=== PATIENT | female | born 1965 | race Caucasian/White ===

== ENCOUNTER 2017-03-14 05:58 | Emergency (ER) | payer SELFPAY | END 2017-03-14 06:09 | disposition left against medical advice (07) | LOC: ER 06:03 | DX: R00.0 Tachycardia, unspecified (principal); Z53.21 Procedure and treatment not carried out due to patient leaving prior to being seen by health care provider ==

== ENCOUNTER 2017-03-25 13:59 | Inpatient (IN) | payer MEDICAID ==
[~2017-03-25] VITALS: Ht 157.5 cm; Wt 70.3 kg
[2017-03-25] MEDS ORDERED: DILTIAZEM HCL 5MG/ML 5ML VIAL IV ONE (14:15)
[2017-03-25 14:40] LABS: EOSINOPHILS % 2.3 % (0.0-5.0); HEMATOCRIT. 41.6 % (36.0-48.0); HEMOGLOBIN. 13.6 g/dL (12.0-16.0); MEAN CORPUSCULAR HEMOGLOBIN 27.3 pg (28.0-32.0); MEAN CORPUSCULAR VOLUME 83.5 fL (81.0-99.0); MEAN PLATELET VOLUME 8.1 fl (7.4-10.4); MONOCYTES % 7.9 % (2.0-8.0); NEUTROPHILS % 66.8 % (40.0-76.0); PLATELET 399 x1000/uL (130-400); RED BLOOD CELL COUNT 4.98 mill/uL (4.2-5.4); RED CELL DISTRIBUTION WIDTH 15.7 % (11.6-14.6)
[2017-03-25] MEDS ORDERED: DILTIAZEM HCL 120MG CAPSULE CD 24HR PO ONE (14:45)
[2017-03-25 14:49] LABS: INR 1.1
[2017-03-25 14:57] LABS: CARBON DIOXIDE 24 mEq/L (21-32); CHLORIDE 105 mEq/L (98-107); TROPONIN I 0.05 ng/mL (0.00-0.04)
[2017-03-25 14:58] LABS: HCG SCREEN NEGATIVE
[2017-03-25 15:02] LABS: T4 FREE 0.91 ng/dL (0.76-1.46)
[2017-03-25] MEDS ORDERED: DILTIAZEM HCL 125 MG in DEXT 5% WATER 100 ML IV ONE (15:15)
[2017-03-25] MEDS ORDERED: FUROSEMIDE 40MG/4ML VIAL IVP ONE (15:15)
[2017-03-25] MEDS ORDERED: DILTIAZEM HCL 125 MG in DEXT 5% WATER 100 ML IV NR (15:15)
[2017-03-25] MEDS ORDERED: HYDROCODONE/ACETAMINOPHEN 5/325MG TABLET PO PRN (16:00)
[2017-03-25] MEDS ORDERED: ONDANSETRON HCL 4MG/2ML VIAL IV PRN (16:00)
[2017-03-25] MEDS ORDERED: CLONIDINE 0.1MG TABLET PO PRN (16:00)
[2017-03-25] MEDS ORDERED: ACETAMINOPHEN 325MG TABLET PO PRN (16:00)
[2017-03-25] MEDS ORDERED: DOCUSATE SODIUM 100MG CAPSULE PO PRN (16:00)
[2017-03-25] MEDS ORDERED: GUAIFENESIN 200MG/10ML SUGAR FREE UDC PO PRN (16:00)
[2017-03-25 16:49] VITALS: BP 132/59
[2017-03-25 16:57] VITALS: BP 132/59
[2017-03-25] MEDS ORDERED: METROPOLOL (17:08)
[2017-03-25] MEDS ORDERED: DILT120C2 PO (17:08)
[2017-03-25] MEDS ORDERED: LEVO25TA7 PO (17:08)
[2017-03-25 18:00] VITALS: BP 102/75
[2017-03-25] MEDS ORDERED: ENOXAPARIN 40MG/0.4ML SYR SUBCUT SCH (18:00)
[2017-03-25 20:00] VITALS: BP 102/75
[2017-03-25 21:00] VITALS: BP 106/78
[2017-03-25] MEDS: METOPROLOL TARTRATE 25MG TABLET PO SCH (21:00)
[2017-03-25 22:00] VITALS: BP 95/64
[2017-03-26] VITALS (10 sets, daily range): BP systolic 97–118; BP diastolic 55–76
[2017-03-26] MEDS ORDERED: DILTIAZEM HCL 125 MG in DEXT 5% WATER 100 ML IV SCH ×2
[2017-03-26 00:18] LABS: CREATINE KINASE MB FRACTION 1.8 ng/mL (0.5-3.6); TROPONIN I 0.1 ng/mL (0.00-0.04)
[2017-03-26 07:59] LABS: BASOPHILS % 1.1 % (0.0-2.0); EOSINOPHILS % 4.2 % (0.0-5.0); HEMATOCRIT. 41.6 % (36.0-48.0); HEMOGLOBIN. 14.1 g/dL (12.0-16.0); LYMPHOCYTES % 30.3 % (20.0-50.0); MEAN CORPUSCULAR HEMOGLOBIN 27.8 pg (28.0-32.0); MEAN CORPUSCULAR VOLUME 82.2 fL (81.0-99.0); MEAN PLATELET VOLUME 7.7 fl (7.4-10.4); NEUTROPHILS % 56.4 % (40.0-76.0); PLATELET 275 x1000/uL (130-400); RED BLOOD CELL COUNT 5.06 mill/uL (4.2-5.4); RED CELL DISTRIBUTION WIDTH 15.5 % (11.6-14.6)
[2017-03-26 08:26] LABS: CARBON DIOXIDE 24 mEq/L (21-32); CHLORIDE 104 mEq/L (98-107); CREATINE KINASE 29 IU/L (26-192); CREATINE KINASE MB FRACTION 1.6 ng/mL (0.5-3.6); HDL CHOLESTEROL 41 mg/dL (40-59); LDL CHOLESTEROL 98 mg/dL (5-100); TROPONIN I 0.07 ng/mL (0.00-0.04)
[2017-03-26] MEDS: METOPROLOL TARTRATE 25MG TABLET PO SCH (08:40)
[2017-03-26] MEDS ORDERED: ASPIRIN 81MG EC TABLET PO SCH (09:00)
[2017-03-26] MEDS ORDERED: DILTIAZEM HCL 120MG CAPSULE CD 24HR PO SCH (09:00)
[2017-03-26] MEDS ORDERED: AMLODIPINE 10MG TABLET PO SCH (09:00)
== END 2017-03-26 16:40 | disposition home or self-care (01) | DRG 201 ==
LOC: EDBEDREQ 15:03 → EDBEDREQSVC 15:03 → ENRESERV 15:08 → ER 15:15 → 3WST 15:20 → CANBEDREQ 16:27
PROVIDERS: ADMIT Hospitalist; ATTEND Hospitalist
DX: I47.1 Supraventricular tachycardia (principal); R65.10 Systemic inflammatory response syndrome (SIRS) of non-infectious origin without acute organ dysfunction; I10 Essential (primary) hypertension; E03.9 Hypothyroidism, unspecified; Z91.14 Patient's other noncompliance with medication regimen
CPT/HCPCS: 36415; 80053; 80061; 82550; 82553; 83690; 83735; 83880; 84439; 84443; 84481; 84484; 84703; 85025; 85610; 85730; 93005; 93306; 96374; 96375; 99291; J1650; J1940; J3490; J7060

== ENCOUNTER 2017-07-26 08:22 | Emergency (ER) | payer MEDICAID, MEDICARE, OTHER ==
[~2017-07-26] VITALS: Ht 160 cm; Wt 73.0 kg
[~2017-07-26 08:22] MED LIST: DILT-26 PO; LEVO25TA7 PO
[2017-07-26 08:58] LABS: BASOPHILS % 1.3 % (0.0-2.0); EOSINOPHILS % 2.1 % (0.0-5.0); HEMATOCRIT. 40.3 % (36.0-48.0); HEMOGLOBIN. 13.4 g/dL (12.0-16.0); LYMPHOCYTES % 38.7 % (20.0-50.0); MEAN CORPUSCULAR HEMOGLOBIN 28.2 pg (28.0-32.0); MEAN CORPUSCULAR VOLUME 84.7 fL (81.0-99.0); MEAN PLATELET VOLUME 7.7 fl (7.4-10.4); MONOCYTES % 6.3 % (2.0-8.0); NEUTROPHILS % 51.6 % (40.0-76.0); PLATELET 327 x1000/uL (130-400); RED BLOOD CELL COUNT 4.76 mill/uL (4.2-5.4); RED CELL DISTRIBUTION WIDTH 14.3 % (11.6-14.6)
[2017-07-26] MEDS ORDERED: ADENOSINE 3 MG/ML 2ML VIAL IV ONE ×3 (09:00)
[2017-07-26 09:06] LABS: CHLORIDE 109 mEq/L (98-107)
[2017-07-26 09:11] LABS: TROPONIN I < 0.02 ng/mL (0.00-0.04)
[2017-07-26 09:12] LABS: PROTHROMBIN TIME 10.1 sec (9.4-11.6)
[2017-07-26] MEDS ORDERED: FUROSEMIDE 20MG/2ML VIAL IVP ONE (09:15)
[2017-07-26 09:17] VITALS: BP 127/94
[2017-07-26 09:23] LABS: HCG SCREEN NEGATIVE
== END 2017-07-26 09:48 | disposition left against medical advice (07) ==
LOC: ER 08:22
DX: I47.1 Supraventricular tachycardia (principal); I50.41 Acute combined systolic (congestive) and diastolic (congestive) heart failure; I11.0 Hypertensive heart disease with heart failure; E03.9 Hypothyroidism, unspecified
CPT/HCPCS: 36415; 80048; 83880; 84443; 84484; 84703; 85025; 85610; 85730; 93005; 96374; 99291; J0153; J1940; J7042; Z7610

== ENCOUNTER 2018-12-13 06:29 | Emergency (ER) | payer OTHER | END 2018-12-13 10:19 | disposition left against medical advice (07) | LOC: ER 09:37 | DX: R00.0 Tachycardia, unspecified (principal); Z53.21 Procedure and treatment not carried out due to patient leaving prior to being seen by health care provider ==